=== PATIENT | female | born 1990 | race Caucasian/White ===

== ENCOUNTER 2019-01-27 12:43 | Emergency (ER) | payer BC, OTHER ==
[2019-01-27 13:43] VITALS: BP 115/76
--- NOTE | 2019-01-27 14:34 | UC ---
Neck Pain HPI - HPI Summary HPI Summary: patient was lifting heavy boxes over past week (moving) did a lot of lifting yesterday, this am woke with L sided neck and shoulder pain, worsened throughout day, took ibuprofen 800mg at 1030 with little relief. went to work, and someone lightly applied ice and massaged L neck and shoulder and pain worsened pain worse if lifting L arm or turning head. denies shoulder pain. denies fall or known injury, no recent illness - History of Current Complaint Chief Complaint: UCUpperExtremity Stated Complaint: NECK PAIN Time Seen by Provider: 01/27/19 13:59 Hx Obtained From: Patient Hx Last Menstrual Period: just finished ?: No Timing: Constant Onset/Duration: Gradual Onset Severity: Severe Pain Intensity: 8 Location: Discrete At: - L neck and shoulder Aggravating Factors: Movement Alleviating Factors: Position Associated Signs & Symptoms: Negative: Weakness, Headache, Paresthesia - Allergies/Home Medications Allergies/Adverse Reactions: Allergies Allergy/AdvReac Type Severity Reaction Status Date / Time No Known Allergies Allergy Verified 01/27/19 13:43 Home Medications: Home Medications Control 1 tab PO DAILY 01/27/19 [History Confirmed 01/27/19] Bupropion XL* [Wellbutrin XL *] 150 mg PO DAILY 01/27/19 [History Confirmed ] PMH/Surg Hx/FS Hx/Imm Hx Previously Healthy: Yes Psychological History: Depression - Surgical History Surgical History: Yes Surgery Procedure, Year, and Place: appendectomy. tubal ligation - Family History Known Family History: Positive: Non-Contributory - Social History Occupation: Employed Full-time Lives: With Family Alcohol Use: Rare Substance Use Type: None Smoking Status (MU): Never Smoked Tobacco Review of Systems All Other Systems Reviewed And Are Negative: Yes Constitutional: Positive: Negative. Negative: Fever, Chills Skin: Positive: Negative. Negative: Rash Respiratory: Positive: Negative Cardiovascular: Positive: Negative Musculoskeletal: Positive: Other: - L neck and shoulder pain Neurological: Positive: Negative. Negative: Headache, Weakness, Paresthesia, Numbness Psychological: Positive: Negative Is Patient Immunocompromised?: No Physical Exam Triage Information Reviewed: Yes Appearance: Well-Appearing, No Pain Distress, Well-Nourished Vital Signs: Initial Vital Signs Temp 98.8 F 01/27/19 13:38 Pulse 73 01/27/19 13:38 Resp 16 01/27/19 13:38 BP 115/76 01/27/19 13:38 Pulse Ox 100 01/27/19 13:38 Vital Signs Reviewed: Yes Neck: Positive: No Lymphadenopathy, Tenderness @ - left lateral neck, palp spasm left upper back (trapezius) Respiratory Exam: Normal Respiratory: Positive: Lungs clear Cardiovascular Exam: Normal Cardiovascular: Positive: RRR Musculoskeletal Exam: Normal Musculoskeletal: Positive: Other: - holds L shoulder still d/t neck pain Neurological Exam: Normal Neurological: Positive: Alert Psychological Exam: Normal Skin Exam: Normal Neck Pain Course/Dx - Differential Dx/Diagnosis Differential Dx/HQI/PQRI: Meningitis, Strain, Torticollis, Trauma Provider Diagnosis: Neck muscle strain Discharge - Sign-Out/Discharge Documenting (check all that apply): Patient Departure All imaging exams completed and their final reports reviewed: No Studies - Discharge Plan Condition: Stable Disposition: HOME Prescriptions: Cyclobenzaprine TAB* [Flexeril 10 MG TAB*] 10 mg PO TID PRN #15 tab PRN Reason: Spasms - Neck Ibuprofen TAB* [Motrin TAB* 800 MG] 800 mg PO Q6H #30 tab Patient Education Materials: Cervical Strain (DC) Forms: *Work Release Referrals: Aruna Crowe NP [Primary Care Provider] - Andres Riggs MD [Medical Doctor] - 3 Days (if no better) Additional Instructions: apply heat to area of ppain take ibuprofen as directed with food take cyclobenzaprine (muscle relaxer) as directed - this will make you drowsy return if symptoms worsen or new symptoms develop - Billing Disposition and Condition Condition: STABLE Disposition: Home - Attestation Statements Provider Attestation: I was available for consult. This patient was seen by the DIPAK. The patient was not presented to , seen by or examined by -Dali Campos MD
== END 2019-01-27 14:43 | disposition home or self-care (01) ==
LOC: UCEAST 12:43
DX: S16.1XXA Strain of muscle, fascia and tendon at neck level, initial encounter (principal); X50.9XXA Other and unspecified overexertion or strenuous movements or postures, initial encounter; Y93.89 Activity, other specified; Y92.019 Unspecified place in single-family (private) house as the place of occurrence of the external cause; Y99.8 Other external cause status; F32.9 Major depressive disorder, single episode, unspecified
CPT/HCPCS: 99212; G0463

== ENCOUNTER 2019-03-03 07:45 | Emergency (ER) | payer BC ==
[2019-03-03] MEDS ORDERED: Ondansetron INJ* 2 MG/ML VIAL IV ONE (08:03)
[2019-03-03] MEDS ORDERED: NS 0.9% 1000 ML** 1,000 ML IV ONE ×2 (08:03→09:40)
--- NOTE | 2019-03-03 08:24 | ED ---
GI/ HPI - HPI Summary HPI Summary: This patient is a 29 year old F presenting to [facility] with a chief complaint of diarrhea since "last couple of days". Patient states that she is having diarrhea as well as nausea. Patient states that she usually takes Imodium which helps with her diarreha. Patient states that her diarrhea is a "yellowish" in color. Patient states that she has taken 3 doses with no help. The patient rates the pain 2/10 in severity per ED Triage. Symptoms aggravated by nothing. Symptoms alleviated by nothing. Patient states that her last normal menstrual period was 02/24/19. Patient reports FHx of diabetes and breast cancer. Patient denies any recent travel, eating out or recent use of antibiotics. Patient states that she does not have hematochezia. Patient has a PSHx of appendectomy and tubal ligation. Patient denies substance abuse and tobacco use. Patient reports EtOH use as well as FHx of breast cancer and diabetes. - History of Current Complaint Chief Complaint: EDAbdPain Time Seen by Provider: 03/03/19 07:53 Stated Complaint: ABD PAIN PER PT Hx Obtained From: Patient Hx Last Menstrual Period: 02/24/19 Onset/Duration: Started Days Ago Timing: Intermittent Current Severity: Mild Pain Intensity: 2 Pain Characteristics: Cramping Associated Signs and Symptoms: Positive: Nausea, Diarrhea, Abdominal Pain. Negative: Vomiting, Blood w/Stool - Allergy/Home Medications Allergies/Adverse Reactions: Allergies Allergy/AdvReac Type Severity Reaction Status Date / Time No Known Allergies Allergy Verified 03/03/19 07:49 PMH/Surg Hx/FS Hx/Imm Hx Endocrine/Hematology History: Denies: Hx Diabetes, Hx Thyroid Disease Cardiovascular History: Denies: Hx Hypertension Respiratory History: Denies: Hx Asthma, Hx Chronic Obstructive Pulmonary Disease (COPD) GI History: Denies: Hx Ulcer - Surgical History Surgical History: Yes Surgery Procedure, Year, and Place: appendectomy. tubal ligation Infectious Disease History: No Infectious Disease History: Denies: Hx Hepatitis, Hx Human Immunodeficiency Virus (HIV), Traveled Outside the [place] in Last 30 Days - Family History Known Family History: Positive: Diabetes, Other - Breast cancer - Social History Alcohol Use: Rare Substance Use Type: Reports: None Hx Tobacco Use: No Smoking Status (MU): Never Smoked Tobacco Review of Systems Negative: Fever Positive: Abdominal Pain - cramping characterized as cramping , Diarrhea, Nausea. Negative: Vomiting All Other Systems Reviewed And Are Negative: Yes Physical Exam - Summary Physical Exam Summary: VITAL SIGNS: Reviewed. GENERAL: Patient is a well-developed and nourished (MALE OR FEMALE) who is lying comfortable in the stretcher. Patient is not in any acute respiratory distress. HEAD AND FACE: No signs of trauma. No ecchymosis, hematomas or skull depressions. No sinus tenderness. EYES: PERRLA, EOMI x 2, No injected conjunctiva, no nystagmus. EARS: Hearing grossly intact. Ear canals and tympanic membranes are within normal limits. MOUTH: Oropharynx within normal limits. NECK: Supple, trachea is midline, no adenopathy, no JVD, no carotid bruit, no c- spine tenderness, neck with full ROM. CHEST: Symmetric, no tenderness at palpation. LUNGS: Clear to auscultation bilaterally. No wheezing or crackles. CVS: Regular rate and rhythm, S1 and S2 present, no murmurs or gallops appreciated. ABDOMEN: Soft, non-tender. No signs of distention. No rebound, no guarding, and no masses palpated. Bowel sounds are increased. EXTREMITIES: FROM in all major joints, no edema, no cyanosis or clubbing. NEURO: Alert and oriented x 3. No acute neurological deficits. Speech is normal and follows commands. SKIN: Dry and warm. Triage Information Reviewed: Yes Vital Signs On Initial Exam: Initial Vitals Temp Pulse Resp BP Pulse Ox 98.6 F 100 16 121/80 99 03/03/19 07:47 03/03/19 07:47 03/03/19 07:47 03/03/19 07:47 03/03/19 07:47 Vital Signs Reviewed: Yes Diagnostics - Vital Signs Vital Signs Temp Pulse Resp BP Pulse Ox 03/03/19 07:47 98.6 F 100 16 121/80 99 - Laboratory Result Diagrams: 03/03/19 08:37 03/03/19 08:37 Lab Statement: Any lab studies that have been ordered have been reviewed, and results considered in the medical decision making process. GIGU Course/Dx - Course Assessment/Plan: 29-year-old female with nausea and diarrhea. IV fluids ordered. Zofran given for nausea. Blood work ordered and the stool cultures ordered. Blood work without any significant abnormality. Patient is unable to give any stool sample at this point. Patient was given an additional liter of IV fluids. The patient was unable to give any stool samples. The patient reports that she is feeling better. Therefore the patient will be discharged home with follow-up with PCP. Patient is hemodynamically stable alert and oriented 3. - Diagnoses Provider Diagnoses: Nausea, Diarrhea Discharge ED - Sign-Out/Discharge Documenting (check all that apply): Patient Departure - discharge Patient Received Moderate/Deep Sedation with Procedure: No - Discharge Plan Condition: Stable Disposition: HOME Prescriptions: Dicyclomine CAP* [Bentyl CAP*] 10 mg PO TID PRN #9 cap PRN Reason: Pain - Moderate Patient Education Materials: Acute Diarrhea (ED) Referrals: Aruna Crowe NP [Primary Care Provider] - 3 Days Additional Instructions: FOLLOW UP WITH YOUR PRIMARY CARE PROVIDER WITHIN 3 DAYS FOR NAUSEA AND DIARRHEA NOTED TODAY. RETURN TO THE ED FOR ANY WORSENING OR NEW SYMPTOMS. - Attestation Statements Document Initiated by Scribe: Yes Documenting Scribe: Naty Webster Provider For Whom Catalino is Documenting (Include Credential): Dr. Dc Singh MD Scribe Attestation: Naty Shay scribed for Dr. Dc Singh MD on 03/03/19 at 1201. Status of Scribe Document: Ready
[2019-03-03 08:44] LABS: ABS Eosinophils 0.1 10^3/ul (0-0.6); ABS Lymphocytes 1.7 10^3/ul (1.0-4.8); ABS Monocytes 0.5 10^3/ul (0-0.8); ABS Neutrophils 7.7 10^3/ul (1.5-7.7); Eosinophil % 0.6 %; Hematocrit 37 % (35-47); Hemoglobin 12.7 g/dL (12.0-16.0); Lymphocyte % 16.8 %; Mean Corpuscular HGB Conc 34 g/dL (31-36); Mean Corpuscular Hemoglobin 30 pg (27-31); Mean Corpuscular Volume 87 fL (80-97); Mean Platelet Volume 7.3 fL (7.4-10.4); Platelet Count 362 10^3/uL (150-450); Red Blood Count 4.25 10^6 /uL (3.70-4.87); Red Cell Distribution Width 12 % (10-15); White Blood Count 9.9 10^3/uL (3.5-10.8)
[2019-03-03 09:03] LABS: Albumin/Globulin Ratio 1.7 (1-3); BUN/Creatinine Ratio 16.3 (8-20); C Reactive Protein 3.93 mg/L (<8.01); Calcium 8.8 mg/dL (8.6-10.3); EGFR African American 93.7 (>60); EGFR Non-African American 77.5 (>60); Globulin 2.4 g/dL (2-4); Potassium 3.8 mmol/L (3.5-5.0); Total Bilirubin 0.4 mg/dL (0.2-1.0); Total Protein 6.4 g/dL (6.4-8.9)
[2019-03-03 12:09] VITALS: BP 103/71
== END 2019-03-03 12:09 | disposition home or self-care (01) ==
LOC: ED 07:45
DX: R19.7 Diarrhea, unspecified (principal); R11.0 Nausea; R10.9 Unspecified abdominal pain; Z90.89 Acquired absence of other organs
CPT/HCPCS: 36415; 80053; 82150; 83605; 83690; 85025; 86140; 99282; J2405

== ENCOUNTER 2019-03-04 16:24 | Emergency (ER) | payer BC ==
[2019-03-04 19:57] LABS: ABS Eosinophils 0.2 10^3/ul (0-0.6); ABS Lymphocytes 2.5 10^3/ul (1.0-4.8); ABS Monocytes 0.6 10^3/ul (0-0.8); ABS Neutrophils 8.2 10^3/ul (1.5-7.7); Eosinophil % 1.4 %; Hematocrit 38 % (35-47); Hemoglobin 12.7 g/dL (12.0-16.0); Lymphocyte % 21.9 %; Mean Corpuscular HGB Conc 33 g/dL (31-36); Mean Corpuscular Hemoglobin 29 pg (27-31); Mean Corpuscular Volume 87 fL (80-97); Mean Platelet Volume 7.3 fL (7.4-10.4); Platelet Count 386 10^3/uL (150-450); Red Blood Count 4.34 10^6 /uL (3.70-4.87); Red Cell Distribution Width 12 % (10-15); White Blood Count 11.5 10^3/uL (3.5-10.8)
[2019-03-04 20:14] LABS: ALT 68 U/L (7-52); AST 33 U/L (13-39); Albumin 4.3 g/dL (3.2-5.2); Albumin/Globulin Ratio 1.5 (1-3); Alkaline Phosphatase 92 U/L (34-104); Anion Gap 6 mmol/L (2-11); BUN/Creatinine Ratio 9.6 (8-20); Blood Urea Nitrogen 7 mg/dL (6-24); C Reactive Protein 6.59 mg/L (<8.01); CO2 Carbon Dioxide 26 mmol/L (22-32); Calcium 9.1 mg/dL (8.6-10.3); Chloride 105 mmol/L (101-111); EGFR African American 113.3 (>60); EGFR Non-African American 93.6 (>60); Globulin 2.9 g/dL (2-4); Glucose 98 mg/dL (70-100); Potassium 3.7 mmol/L (3.5-5.0); Sodium 137 mmol/L (135-145); Total Protein 7.2 g/dL (6.4-8.9)
[2019-03-04 20:20] LABS: HCG Pregnancy < 0.60 mIU/mL
[2019-03-04] MEDS ORDERED: Diphenoxylat/Atrop 2.5-0.025M* 1 TAB PO ONE (20:25)
[2019-03-04] MEDS ORDERED: Morphine 4 MG/ML VIAL (1 ml) 4 MG/ML VIAL IV ONE (20:25)
[2019-03-04] MEDS ORDERED: NS 0.9% 1000 ML** 2,000 ML IV ONE (20:25)
[2019-03-04] MEDS ORDERED: Ondansetron INJ* 2 MG/ML VIAL IV ONE (20:25)
[2019-03-04] MEDS ORDERED: Iohexol 300* (CONTRAST) 10 ML SDV IV ONE (21:12)
--- NOTE | 2019-03-04 21:21 | ED ---
Abdominal Pain/Female - HPI Summary HPI Summary: The patient is a 29 y/o F presenting to [facility] with a chief complaint of intermittent left-sided abdominal pain for the last four days with worsening symptoms today. She reports that she came to the ED yesterday for similar symptoms for which she was administered fluids but was unable to provide a stool sample. She is now experiencing watery diarrhea with mucous that is not alleviated by Amlodipine, which usually helps her with these symptoms. She notes that after passing a stool, which she has done 4-5 times in the last 4 hours, there is a pressure that develops as if she has solid stool to pass, although there is no success. The pain is described as a stabbing pain and is currently rated 8/10 in severity. She additionally c/o decreased appetite, nausea without vomiting, and low-grade fever of 99.9F. She denies any chills, blood in stool, decreased fluid intake, or rashes, although she has a bite noted on the posterior neck that has mostly resolved. These symptoms are atypical for her. No recent abx or travel. No one else at home is sick. LNMP: . PMHx: appendectomy, tubal ligation. FHx: DM, breast cancer. Nonsmoker, rare EtOH, no substance use. Medications reviewed. Allergies noted. - History of Current Complaint Chief Complaint: EDAbdPain Stated Complaint: ABD PAIN PER PT Time Seen by Provider: 03/04/19 20:18 Hx Obtained From: Patient Hx Last Menstrual Period: 02/24/19 ?: No Onset/Duration: Gradual Onset, Lasting Days - four, Still Present, Worse Since - today Timing: Days Severity Initially: Mild Severity Currently: Moderate Pain Intensity: 8 Pain Scale Used: 0-10 Numeric Location: Other - left-sided Radiates: No Character: Other: - stabbing Aggravating Factor(s): Nothing Alleviating Factor(s): Nothing - Amplodipine to no relief Associated Signs and Symptoms: Positive: Fever - low-grade 99.9F, Decreased Appetite, Nausea, Diarrhea - watery, mucous, Other: - Negative: chills, decreased fluid intake, rash. Negative: Blood in Stool, Vomiting Allergies/Adverse Reactions: Allergies Allergy/AdvReac Type Severity Reaction Status Date / Time No Known Allergies Allergy Verified 03/04/19 20:53 PMH/Surg Hx/FS Hx/Imm Hx Endocrine/Hematology History: Denies: Hx Diabetes, Hx Thyroid Disease Cardiovascular History: Denies: Hx Hypertension Respiratory History: Denies: Hx Asthma, Hx Chronic Obstructive Pulmonary Disease (COPD) GI History: Denies: Hx Ulcer History: Denies: Hx Renal Disease - Surgical History Surgical History: Yes Surgery Procedure, Year, and Place: appendectomy. tubal ligation Infectious Disease History: No Infectious Disease History: Denies: Hx Hepatitis, Hx Human Immunodeficiency Virus (HIV), Traveled Outside the [place] in Last 30 Days - Family History Known Family History: Positive: Diabetes, Other - Breast cancer - Social History Alcohol Use: Rare Hx Substance Use: No Substance Use Type: Reports: None Hx Tobacco Use: No Smoking Status (MU): Never Smoked Tobacco Review of Systems Positive: Fever - low-grade at 99.9F. Negative: Chills Positive: Abdominal Pain - left-sided, Diarrhea - watery, mucous, Nausea, Other - Positive: decreased appetite. Negative: hematochezia, decreased fluid intake.. Negative: Vomiting Negative: Rash All Other Systems Reviewed And Are Negative: Yes Physical Exam - Summary Physical Exam Summary: Appearance: Well-appearing, Well-nourished, lying in bed comfortably Skin: Warm, dry, no obvious rash Eyes: sclera anicteric, no conjunctival pallor ENT: mucous membranes moist, pharynx appears normal Neck: Supple, nontender Respiratory: Clear to auscultation, no signs of respiratory distress Cardiovascular: Normal S1, S2. No murmurs. Normal distal pulses in tibial and radial bilaterally. Abdomen: Soft, Mild left sided abdominal tenderness, no peritoneal signs, normal active bowel sounds present Musculoskeletal: Normal, Strength/ROM Intact Neurological: A&Ox3, awake and alert, mentation is normal, speech is fluent and appropriate Psychiatric: affect is normal, does not appear anxious or depressed Triage Information Reviewed: Yes Vital Signs On Initial Exam: Initial Vitals Temp Pulse Resp BP Pulse Ox 98.7 F 69 16 125/82 99 03/04/19 16:26 03/04/19 16:26 03/04/19 16:26 03/04/19 16:26 03/04/19 16:26 Vital Signs Reviewed: Yes Diagnostics - Vital Signs Vital Signs Temp Pulse Resp BP Pulse Ox 03/04/19 19:08 99.0 F 88 16 115/72 98 03/04/19 16:26 98.7 F 69 16 125/82 99 - Laboratory Lab Results: Lab Results 03/04/19 03/04/19 Range/Units 19:50 19:50 WBC 11.5 H (3.5-10.8) 10^3/uL RBC 4.34 (3.70-4.87) 10^6 /uL Hgb 12.7 (12.0-16.0) g/dL Hct 38 (35-47) % MCV 87 (80-97) fL MCH 29 (27-31) pg MCHC 33 (31-36) g/dL RDW 12 (10-15) % Plt Count 386 (150-450) 10^3/uL MPV 7.3 L (7.4-10.4) fL Neut % (Auto) 70.9 % Lymph % (Auto) 21.9 % [place] % (Auto) 5.4 % Eos % (Auto) 1.4 % Baso % (Auto) 0.4 % Absolute Neuts (auto) 8.2 H (1.5-7.7) 10^3/ul Absolute Lymphs (auto) 2.5 (1.0-4.8) 10^3/ul Absolute Monos (auto) 0.6 (0-0.8) 10^3/ul Absolute Eos (auto) 0.2 (0-0.6) 10^3/ul Absolute Basos (auto) 0.0 (0-0.2) 10^3/ul Absolute Nucleated RBC 0.0 10^3/ul Nucleated RBC % 0.0 Sodium 137 (135-145) mmol/L Potassium 3.7 (3.5-5.0) mmol/L Chloride 105 (101-111) mmol/L Carbon Dioxide 26 (22-32) mmol/L Anion Gap 6 (2-11) mmol/L BUN 7 (6-24) mg/dL Creatinine 0.73 (0.51-0.95) mg/dL Est GFR ( Amer) 113.3 (>60) Est GFR (Non-Af Amer) 93.6 (>60) BUN/Creatinine Ratio 9.6 (8-20) Glucose 98 (70-100) mg/dL Calcium 9.1 (8.6-10.3) mg/dL Total Bilirubin 0.40 (0.2-1.0) mg/dL AST 33 (13-39) U/L ALT 68 H (7-52) U/L Alkaline Phosphatase 92 (34-104) U/L C-Reactive Protein 6.59 (<8.01) mg/L Total Protein 7.2 (6.4-8.9) g/dL Albumin 4.3 (3.2-5.2) g/dL Globulin 2.9 (2-4) g/dL Albumin/Globulin Ratio 1.5 (1-3) Beta HCG, Quant < 0.60 mIU/mL Result Diagrams: 03/04/19 19:50 03/04/19 19:50 Lab Statement: Any lab studies that have been ordered have been reviewed, and results considered in the medical decision making process. - CT Abd/Pel CT CT Interpretation Completed By: Radiologist Summary of CT Findings: Impression: No acute findings. ED physician has reviewed this imaging report. Re-Evaluation - Re-Evaluation First Eval Re-Evaluation Time: 21:40 Change: Improved Comment: Pt's pain has improved as she is feeling better on her way to CT. Abdominal Pain Fem Course/Dx - Course Course Of Treatment: Pt is a 29 y/o F with cc of intermittent stabbing left- sided abd pain for the last four days accompanied by multiple episodes of watery diarrhea with mucous today without relief to Amlodipine accompanied by low-grade fever of 99.9F, nausea without vomiting, and decreased appetite, but without any chills, hematochezia, change in fluid intake, or rashes. Upon physical exam, the pt exhibits mild left-sided abdominal pain without peritoneal signs. Blood work reveals WBCs of 11.5, MPV of 7.3, abs neuts of 8.2 , and ALT of 68, but is otherwise unremarkable. In the ED course, the pt was administered fluids, Lomotil, Zofran, and Morphine. Stool occult is negative for C. diff. UA obtained and reveals 1+ ketones, 1+ blood, trace leukocyte esterase, presence of squamous epithelial cells, and 1+ bacteria. Abdominopelvic CT with contrast reveals no acute findings. Pt also administered Zithromax. We discussed all findings and plan for discharge with rx for Lomotil , Zofran, and Percocet. She understands and agrees with this plan. Dx of colitis. - Diagnoses Provider Diagnoses: Colitis Discharge ED - Sign-Out/Discharge Documenting (check all that apply): Patient Departure - Patient will be discharged home. Patient Received Moderate/Deep Sedation with Procedure: No - Discharge Plan Condition: Fair Disposition: HOME Prescriptions: Diphenoxylat/Atrop 2.5-0.025M* [Lomotil TAB*] 2 tab PO QID PRN #20 tab MDD 8 PRN Reason: Diarrhea Ondansetron ODT TAB* [Zofran 4 MG Odt TAB*] 8 mg PO Q6H PRN #12 tab.odt PRN Reason: Nausea Oxycodone TAB(NF) [Oxycodone HCl 10 MG] 10 mg PO Q6H PRN #1 tab MDD 4 PRN Reason: Pain - Severe Patient Education Materials: Colitis (ED) Forms: *Work Release Referrals: Aruna Crowe, [employer]INE[employer] [Primary Care Provider] - 2 Days (if not improving) Additional Instructions: The tests we did tonight fortunately did not show any evidence of a dangerous, invasive infection in the colon, but clearly it is quite inflamed. I have prescribed some medications to help with the symptoms, and you got a dose of antibiotics here which may help if the infection is bacterial. Rest at home and keep up with fluids - it may seem like they just go through you but rest assured much of it is absorbed. - Billing Disposition and Condition Condition: FAIR Disposition: Home - Attestation Statements Document Initiated by Catalino: Yes Documenting Scribe: Alena Clark Provider For Whom Catalino is Documenting (Include Credential): Dr. Carlos Zimmerman MD Scribe Attestation: IAlena scribed for Dr. Carlos Zimmerman MD on 03/08/19 at 1852. Scribe Documentation Reviewed: Yes Provider Attestation: The documentation as recorded by the Alena sky accurately reflects the service I personally performed and the decisions made by me, Dr. Carlos Zimmerman MD Status of Scribreji Document: Viewed
[2019-03-04 21:59] LABS: Urine Appearance Clear; Urine Bacteria 1+ (Absent); Urine Bilirubin Negative (Negative); Urine Blood 1+ (Negative); Urine Color Yellow; Urine Glucose Negative (Negative); Urine Ketones 1+ (Negative); Urine Nitrite Negative (Negative); Urine Protein Negative (Negative); Urine Red Blood Cell Trace(0-2/hpf) (Absent); Urine Specific Gravity 1.004 (1.010-1.030); Urine Squamous Epithelial Cell Present (Absent); Urine Urobilinogen Negative (Negative); Urine White Blood Cell Trace(0-5/hpf) (Absent)
[2019-03-04] MEDS ORDERED: Ketorolac INJ* 30 MG/ML 1 ML VIAL IV PUSH ONE (22:22)
[2019-03-04] MEDS ORDERED: Azithromycin TAB* 250 MG PO ONE (22:35)
[2019-03-04 23:11] VITALS: BP 117/64
== END 2019-03-04 23:18 | disposition home or self-care (01) ==
LOC: ED 16:24
DX: K52.9 Noninfective gastroenteritis and colitis, unspecified (principal); Z98.51 Tubal ligation status; Z79.899 Other long term (current) drug therapy
CPT/HCPCS: 36415; 74177; 80053; 81003; 81015; 84702; 85025; 86140; 87045; 87046; 87086; 87493; 87899; 96361; 96374; 96375; 99284; A9270-GY; J1885; J2270; J2405; Q9967

== ENCOUNTER 2019-07-01 07:29 | Emergency (ER) | payer BC ==
--- OUTSIDE RECORDS SUMMARY | 2019-07-01 07:39 | XMS REPORT | Continuity of Care Document ---
:1990 External Reference #:[id number] Author Name Anastasia Jeffrey MD (transmitted by agent of provider Ainsley Wasserman) Address [address] [place] [address] Care Team Providers Name Role Phone Aruna Crowe F.NGriffinP. 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 [phone] Problems Description No Information Available Social History Type Date Description Comments Sex Unknown ETOH Use Occasionally consumes 1- 2 glasses of alcohol wine per week Tobacco Use Start: Unknown End: Patient is a former socially as a Unknown smoker teenager Recreational Drug Use Denies Drug Use Smoking Status Reviewed: 05/30/19 Patient is a former socially as a smoker teenager Exercise Type/Frequency Does not exercise Allergies, Adverse Reactions, Alerts Active Allergies Reaction Severity Comments Date Codeine Nausea 03/21/2019 Medications Active Medications SIG Qnty Indications Ordering Date Provider Cyclobenzaprine HCL take 5mg at 90tabs M62.838 Navi Loyd, 04/16/2019 5mg night before Tablets bedtime Alprazolam 1/2-2 tablets Unknown 0.5mg Tablets by mouth every 6 hours as needed Claritin 1 by mouth Unknown 10mg Tablets every day Topiramate 1 tab by mouth Unknown 50mg Tablets once a day Multivitamin Adult 1 by mouth Unknown Tablets every day Bupropion Hydrochloride Aruna Crowe, ER (XL) F.N.P. 300mg Tablets ER 24HR History Medications Nitrofurantoin Monohyd Take one cap by 10caps N39.0 Navi Loyd, 2018 - Macro mouth twice MD Unknown 100mg Capsules daily for five days Metformin HCL ER 1 tablet in the 30tabs E28.2 Michael Landaverde MD 03/21/2019 - 500mg evening Unknown Tablets ER 24HR Immunizations Description No Information Available Vital Signs Date Vital Result Comment 05/30/2019 3:05pm Heart Rate 72 /min BP Systolic 116 mmHg BP Diastolic 68 mmHg Respiratory Rate 16 /min Body Temperature 98.4 F 04/16/2019 8:55am Height 65 inches 5'5" Weight 156.00 lb Heart Rate 85 /min BP Systolic 111 mmHg BP Diastolic 78 mmHg Body Temperature 96.9 F Pain Level 5 O2 % BldC Oximetry 99 % BMI (Body Mass Index) 26.0 kg/m2 Results Test Acquired Date Facility Test Result H/L Range Note CBC Auto 04/16/2019 [facility] White Blood 6.1 10^3/uL Normal 3.5-10.[address] [place] [address] [phone] Red Blood Count 4.55 10^6/uL Normal 3.70-4.87 Hemoglobin 13.6 g/dL Normal 12.0-16.0 Hematocrit 40 % Normal 35-47 Mean Corpuscular Volume 88 fL Normal 80-97 Mean Corpuscular Hemoglobin 30 pg Normal 27-31 Mean Corpuscular HGB Conc 34 g/dL Normal 31-36 Red Cell Distribution Width 13 % Normal 10-15 Platelet Count 334 10^3/uL Normal 150-450 Mean Platelet Volume 8.2 fL Normal 7.4-10.4 Abs Neutrophils 3.1 10^3/uL Normal 1.5-7.7 Abs Lymphocytes 2.5 10^3/uL Normal 1.0-4.8 Abs Monocytes 0.4 10^3/uL Normal 0-0.8 Abs Eosinophils 0.1 10^3/uL Normal 0-0.6 Abs Basophils 0.0 10^3/uL Normal 0-0.2 Abs Nucleated RBC 0.0 10^3/uL Granulocyte % 51.7 % Lymphocyte % 40.6 % Monocyte % 6.0 % Eosinophil % 1.5 % Basophil % 0.2 % Nucleated Red Blood Cells % 0.2 Urinalysis Profile 04/16/2019 [facility] Urine Color Straw [address] [place] [address] [phone] Urine Appearance Cloudy Urine Specific Jefferson 1.008 Low 1.010-1.030 Urine pH 6.0 Normal 5-9 Urine Urobilinogen Negative Negative Urine Ketones Negative Negative Urine Protein Negative Negative Urine Leukocytes 1+ Abnormal Negative Urine Blood Negative Negative Urine Nitrite Negative Negative Urine Bilirubin Negative Negative Urine Glucose Negative Negative Urine White Blood Cell Trace(0-5/hpf) Absent Urine Red Blood Cell Absent Absent Urine Bacteria 1+ Abnormal Absent Urine Squamous Epithelial Cell Present Abnormal Absent Laboratory test 04/16/2019 [facility] Ferritin 40.8 ng/mL Normal 11-[address] [place] [address] [phone] Iron & Iron 04/16/2019 [facility] Iron 141 g/dL Normal 50- [address] [place] [address] [phone] Unsaturated Iron Binding < 376 g/dL Total Iron Binding Capacity 391 g/dL Normal 250-450 Transferrin 279 mg/dL Normal 203-362 % Iron Saturation 36 % Normal 15-55 Laboratory test 04/16/2019 [facility] Creatine 84 U/L Normal 10-223 finding Kinase(CK) [place] [address] [phone] GGTP 64 U/L Normal 9-64.0 Liver Function 04/16/2019 [facility] Total Protein 6.9 g/dL Normal 6.4-8.[address] [place] [address] [phone] Albumin 4.6 g/dL Normal 3.2-5.2 Globulin 2.3 g/dL Normal 2-4 Albumin/Globulin Ratio 2.0 Normal 1-3 Total Bilirubin 0.60 mg/dL Normal 0.2-1.0 Direct Bilirubin 0.10 mg/dL Normal 0.03-0.18 Indirect Bilirubin 0.5 mg/dL Normal 0.3-1.0 Alkaline Phosphatase 68 U/L Normal 34-104 Alt 39 U/L Normal 7-52 Ast 22 U/L Normal 13-39 Laboratory test 04/16/2019 [facility] Smooth Muscle Negative Negative 1 [place] [address] [phone] Complement C3 116 mg/dL 75 - 175 2 Complement C4 17 mg/dL 14 - 40 3 Direct Milena NEGATIVE Beta 2 Glycoprotein 04/16/2019 [facility] Beta 2 <9.4 U/mL 4 I Abs 101 [place] [address] [phone] Beta 2 Glycoprotein IgM <9.4 U/mL 5 Cardiolipin 04/16/2019 [facility] Phospholipid Ab < 9.4 MPL 6 Igg/Igm [address] IgM, [place] [address] [phone] Phospholipid Ab IgG < 9.4 GPL 7 Lupus Anticoagulant 04/16/2019 [facility] Prothrombin 11.9 sec [address] Time([place]ac) [place] [address] [phone] Lac Inr 1.1 Lac Apt[address] 31 sec 26 - 36 Lac DRVVT Screen Ratio 0.7 ratio 0.0 - 1.1 Lupus Anticoagulant Interpreta See Comment 9 Urine Culture And 04/16/2019 [facility] Urine Culture SEE RESULT [address] [place] [address] [phone] 1 ADDITIONAL INFORMATION This test was developed and its performance characteristics determined by [facility] in a manner consistent with CLIA requirements. This test has not been cleared or approved by the U.S. Food and Drug Administration. Test Performed by: [facility] [place] [address] Automobile Service Station Manager: Nathan Keith M.D. Ph.D.; CLIA# [id number] 2 Test Performed by: [place] [address] Automobile Service Station Manager: Nathan Keith M.D. Ph.D.; CLIA# [id number] 3 Test Performed by: [facility] [place] [address] Automobile Service Station Manager: Nathan Keith M.D. Ph.D.; CLIA# [id number] 4 REFERENCE VALUE <15.0 (Negative) 5 REFERENCE VALUE <15.0 (Negative) Test Performed by: [facility] [place] [address] Automobile Service Station Manager: Nathan Keith M.D. Ph.D.; CLIA# [id number] 6 REFERENCE VALUE <15.0 (Negative) 7 REFERENCE VALUE <15.0 (Negative) Test Performed by: [facility] [place] [address] Automobile Service Station Manager: Nathan Keith M.D. Ph.D.; CLIA# [id number] 8 REFERENCE VALUE 10.3 - 12.8 9 No evidence of a lupus-like anticoagulant based on results of Prothrombin Time (PT), Activated Partial Thromboplastin Time (APTT), and Dilute Russells Viper Venom Time (DRVVT). Interpretation not reviewed by physician. Test Performed by: [facility] - [address] [address] Automobile Service Station Manager: Nathan Keith M.D. Ph.D.; CLIA# [id number] 10 SEE RESULT BELOW Name: AANBELLA DE LA ROSA : [address]: Navi Loyd MD Acct: [id number] Unit: [id number] AGE: 29 Location: LAB Re04/16/19 SEX: F Status: REG REF SPEC: [id number] ARTIE: 04/16/[address] [facility] [address]: Navi Loyd MD REQ: [id number] RECD: 04/16/19 STATUS:COMP _ SOURCE: URINE SPDESC: ORDERED: Urine Culture Procedure Result Reported Site Urine Culture Final 04/17/19- 1236 ML No growth of clinically significant organisms * ML - Main Lab . END OF REPORT DEPARTMENT OF PATHOLOGY, [address] [place] [address] Blair Brown M.D. Director [facility] # [id number] Procedures Date Code Description Status 04/22/2019 [id number] Mammogram Completed Medical Devices Description No Information Available Encounters Type Date Location Provider Dx Diagnosis Office Visit 04/16/2019 Rheumatology Navi Loyd, R76.0 Raised antibody 9:00a [facility] - MD titer Ccmob R74.0 Nonspec elev of levels of transamns & lactic acid dehydrgnse M79.7 Fibromyalgia M62.838 Other muscle spasm Office Visit 03/21/2019 1:00p [place] [facility] and Michael Landaverde, E28.2 Polycystic [facility] MD ovarian syndrome E04.1 Nontoxic single thyroid nodule Assessments Date Code Description Provider 05/30/2019 N64.59 Other signs and symptoms in breast Anastasia Jeffrey MD 05/30/2019 Z80.3 Family history of malignant neoplasm of breast Anastasia Jeffrey MD 04/16/2019 R76.0 Raised antinuclear antibody Navi Loyd MD 04/16/2019 R74.0 Alt (SGPT) level raised Navi Loyd MD 04/16/2019 M79.7 Fibromyalgia Navi Loyd MD 04/16/2019 M62.838 Muscle spasms of head And/Or neck Navi Loyd MD 03/21/2019 E28.2 Polycystic ovarian syndrome Michael Landaverde MD 03/21/2019 E04.1 Nontoxic single thyroid nodule Michael Landaverde MD Plan of Treatment Future Appointment(s):06/18/2019 3:30 pm - Navi Loyd MD at [facility]05/30/2019 - Anastasia Jeffrey MDN64.59 Other signs and symptoms in ibkylhL35.3 Family history of malignant neoplasm of breastNew Xrays: US Breast Biopsy Bilateral, Ordered: 05/30/19US Breast Limited Bilateral, Ordered: 05/30/19Referral:Nicolas Billy M.D., Hematology & Oncology Functional Status Description No Information Available Mental Status Description No Information Available Referrals Refer to Reason for Referral Status Appt Date Nicolas Billy M.D. Pt.'s mother had breast cancer at age 32, Created at age 37. Maternal aunt had DCIS in her 40s. Pt. reports testing BRCA neg, no details available. She would appreciate advice re prophylactic mastectomies [address] [place], [place] [id number] [phone]
--- OUTSIDE RECORDS SUMMARY | 2019-07-01 07:39 | XMS REPORT | Continuity of Care Document ---
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 Problems Description No Information Available Social History [...] Medications SIG Qnty Indications Ordering Date Provider Omeprazole 1 by mouth 90caps K21.9 Navi Loyd, 06/28/[address] every day Cyclobenzaprine HCL take 5mg at 90tabs M62.838 [...] Navi Loyd, 2018 - Macro mouth twice Unknown 100mg Capsules daily for five days Metformin HCL ER 1 tablet in the 30tabs E28.2 Michael Landaverde MD 03/21/2019 - 500mg evening Unknown Tablets ER 24HR Immunizations Description No Information Available Vital Signs Date Vital Result Comment 06/28/2019 8:35am Height 65 inches 5'5" Heart Rate 86 /min BP Systolic Sitting 97 mmHg BP Diastolic Sitting 73 mmHg Body Temperature 97.4 F O2 % BldC Oximetry 99 % 05/30/2019 3:05pm Heart Rate 72 /min BP Systolic 116 mmHg BP Diastolic 68 mmHg Respiratory Rate 16 /min Body Temperature 98.4 F Results Test Acquired Date Facility Test Result H/L Range Note Surgical 06/24/2019 [facility] Surgical SEE RESULT [address] [place] [address] [phone] PDFReport SEE IMAGE CBC Auto 04/16/2019 [facility] White Blood 6.1 10^3/uL Normal 3.5-10.[address] [place] [address] [phone] Red Blood Count 4.55 10^6/uL Normal 3.70-4.87 [...] Blood Cells % 0.2 Urinalysis Profile 04/16/2019 [facility] Urine Color Straw [address] [place] [address] [phone] Urine Appearance Cloudy Urine Specific Sheldon 1.008 Low 1.010-1.030 Urine pH 6.0 Normal [...] Cell Present Abnormal Absent Laboratory test 04/16/2019 [facility] Ferritin 40.8 ng/mL Normal 11-307 finding [address] [place] [address] [phone] Iron & Iron 04/16/2019 [facility] Iron 141 g/dL Normal 50- 212 Binding Capacity [address] [place] [address] [phone] Unsaturated Iron Binding < 376 g/dL Total Iron Binding Capacity 391 g/dL Normal 250-450 Transferrin 279 mg/dL Normal 203-362 % Iron Saturation 36 % Normal 15-55 Laboratory test 04/16/2019 [facility] Creatine 84 U/L Normal 10-223 finding [facility] Kinase(CK) [place] [address] [phone] GGTP 64 U/L Normal 9-64.0 Liver Function 04/16/2019 [facility] Total Protein 6.9 g/dL Normal 6.4-8.9 Panel [facility] [place] [address] [phone] Albumin 4.6 g/dL Normal 3.2-5.2 Globulin 2.3 g/dL Normal 2-4 Albumin/Globulin Ratio 2.0 Normal 1-3 Total Bilirubin 0.60 mg/dL Normal 0.2-1.0 Direct Bilirubin 0.10 mg/dL Normal 0.03-0.18 Indirect Bilirubin 0.5 mg/dL Normal 0.3-1.0 Alkaline Phosphatase 68 U/L Normal 34-104 Alt 39 U/L Normal 7-52 Ast 22 U/L Normal 13-39 Laboratory test 04/16/2019 [facility] Smooth Muscle Negative Negative 2 finding [facility] [place] [address] [phone] Complement C3 116 mg/dL 75 - 175 3 Complement C4 17 mg/dL 14 - 40 4 Direct Milena NEGATIVE Beta 2 Glycoprotein 04/16/2019 [facility] Beta 2 <9.4 U/mL 5 I Abs [address] [place] [address] [phone] Beta 2 Glycoprotein IgM <9.4 U/mL 6 Cardiolipin 04/16/2019 [facility] Phospholipid Ab < 9.4 MPL 7 Igg/Igm [address] IgM, [place] [address] [phone] Phospholipid Ab IgG < 9.4 GPL 8 Lupus Anticoagulant 04/16/2019 [facility] Prothrombin 11.9 sec [address] Time([place]) [place] [address] [phone] Lac Inr 1.1 Lac Aptt 31 sec 26 - 36 Lac DRVVT Screen Ratio 0.7 ratio 0.0 - 1.1 Lupus Anticoagulant Interpreta See Comment 10 Urine Culture And 04/16/2019 [facility] Urine Culture SEE RESULT [address] [place] [address] [phone] 1 SEE RESULT BELOW Name: ANABELLA DE LA ROSA : [address]: Anastasia Jeffrey MD Acct: [id number] Unit: [id number] AGE: 29 Location: [facility] Re06/24/19 SEX: F Status: REG REF SPEC: [id number] ARTIE: 06/24/19- SUBM DR: Navi Durán MD REQ: [id number] RECD: 06/24/19-226 STATUS: OBDULIA JAVED DR: Anastasia Crowe SERVICE STATION HELPER _ ORDERED: LEVEL 4 FINAL DIAGNOSIS Breast, right, core biopsy: -- Benign breast tissue with nonproliferative fibrocystic change including extensive nodular stromal fibrosis. -- No evidence of neoplasia identified. CLINICAL HISTORY Small 5 x 3 mm nodule; rule out carcinoma PRE-OPERATIVE DIAGNOSIS Right breast mass 2:00 3 cm from nipple 0.5 x 0.3 x 0.5 cm GROSS DESCRIPTION The specimen is received in formalin labeled, Right Breast, and consists of a 1.2 x 0.5 by up to 0.2 cm aggregate of miller-white irregular to cylindrical fibrofatty soft tissue fragments admixed with scant red-brown blood clot. Entirely submitted, one cassette. Signed by and Reported on: Blair Brown MD 1102 END OF REPORT DEPARTMENT OF PATHOLOGY, [address] [place] [address] Blair Brown M.D. Director [place] # [id number] 2 ADDITIONAL INFORMATION This test was developed and its performance characteristics determined by [facility] in a manner consistent with CLIA requirements. This test has not been cleared or approved by the U.S. Food and Drug Administration. Test Performed by: [facility] [address] [place] [address] Golf Club Facer: Nathan Keith M.D. Ph.D.; CLIA# [id number] 3 Test Performed by: [facility] [place] [address] [employer] Facer: Nathan Keith M.D. Ph.D.; CLIA# [id number] 4 Test Performed by: [facility] [place] [address] [employer] Facer: Nathan Keith M.D. Ph.D.; CLIA# [id number] 5 REFERENCE VALUE <15.0 (Negative) 6 REFERENCE VALUE <15.0 (Negative) Test Performed by: [facility] [place] [address] [employer] Facer: Nathan Keith M.D. Ph.D.; CLIA# [id number] 7 REFERENCE VALUE <15.0 (Negative) 8 REFERENCE VALUE <15.0 (Negative) Test Performed by: [facility] [place] [address] [employer] Facer: Nathan Keith M.D. Ph.D.; CLIA# [id number] 9 REFERENCE VALUE 10.3 - 12.8 10 No evidence of a lupus-like anticoagulant based on results of Prothrombin Time (PT), Activated Partial Thromboplastin Time (APTT), and Dilute Russells Viper Venom Time (DRVVT). Interpretation not reviewed by physician. Test Performed by: [facility] [place] [address] [employer] Club Facer: Nathan Keith M.D. Ph.D.; CLIA# [id number] 11 SEE RESULT BELOW Name: ANABELLA DE LA ROSA : [address]: aNvi Loyd MD Acct: [id number] Unit: [id number] AGE: 29 Location: LAB Re04/16/19 SEX: F Status: REG REF SPEC: [id number] ARTIE: 04/16/[address]: Navi Loyd MD REQ: [id number] RECD: 04/16/19 STATUS:COMP _ SOURCE: URINE SPDESC: ORDERED: Urine Culture Procedure Result Reported Site Urine Culture Final 04/17/19- 1236 ML No growth of clinically significant organisms * - Main Lab . END OF REPORT DEPARTMENT OF PATHOLOGY, [address] [place] [address] Blair Brown M.D. Director [facility] # [id number] Procedures Date Code Description Status 04/22/2019 [id number] Mammogram Completed Medical Devices Description No Information Available Encounters Type Date Location Provider Dx Diagnosis Office Visit [facility]2019 [facility] Anastasia Jeffrey, N64.59 Other signs and 2:45p [facility] symptoms in breast Z80.3 Family history of malignant neoplasm of breast Office Visit 04/16/2019 9:00a Rheumatology Navi R76.0 Raised antibody [facility] - MD Rach titer Ccmob R74.0 Nonspec elev of levels of transamns & lactic acid dehydrgnse M79.7 Fibromyalgia M62.838 Other muscle spasm Office Visit 03/21/2019 1:00p [place] [facility] and Rodriguez Coch, E28.2 Polycystic [facility]ocr[facility] ovarian syndrome E04.1 Nontoxic single thyroid nodule Assessments Date Code Description Provider 06/28/2019 M62.838 Other muscle spasm Navi Loyd MD 06/28/2019 M25.552 Pain in left hip Navi Loyd MD 06/28/2019 M25.561 Pain in right knee Navi Loyd MD 06/28/2019 M79.7 Fibromyalgia Navi Loyd MD 06/28/2019 K21.9 Gastro-esophageal reflux disease without Navi Loyd MD esophagitis 05/30/2019 N64.59 Other signs and symptoms in [...] Michael Landaverde MD Plan of Treatment Future Appointment(s):09/27/2019 8:00 am - Navi Loyd MD at [facility]06/28/2019 - Navi Loyd, MDM62.838 Other muscle spasmNew Therapy:Physical TherapyFollow up:3 nfhffgO76.552 Pain in left hipM25.561 Pain in right kneeComments:Recommend Aleve 220mg, up to two tabs twice ssurxB78.7 HnphhghiuboyW44.9 Gastro-esophageal reflux disease without esophagitisNew Medication:Omeprazole 40 mg - 1 by mouth every day Functional Status Description No Information Available Mental Status Description No Information Available Referrals Refer to Reason for Referral Status Appt Date Nicolas Billy M.D. Pt.'s mother had breast cancer at age 32, Closed at age 37. Maternal aunt had DCIS in her 40s. Pt. reports testing BRCA neg, no details available. She would appreciate advice re prophylactic mastectomies [address] [place] [address] [phone]
[2019-07-01] MEDS ORDERED: Ondansetron ODT TAB* 4 MG SL ONE ×2 (07:41→11:56)
--- NOTE | 2019-07-01 07:42 | ED ---
GI/ HPI - HPI Summary HPI Summary: This patient is a 29 year old F with a history of colitis presenting to ED with a chief complaint of nausea since 0600 this morning after waking up. Patient also reports dizziness. She denies any abdominal pain, vomiting, headaches, body aches, fever, chest pain, shortness of breath, and burning while urination. Patient did not eat dinner yesterday since she didnt feel hungry. Her last meal was around 1400 yesterday. She felt mostly fine last night. She did not drink her coffee this morning. She reports being around other people who have been sick recently. The patient rates the pain 0/10 in severity. Symptoms aggravated by nothing. Symptoms alleviated by nothing. PSHx of tubal ligation. - History of Current Complaint Chief Complaint: EDNauseaVomitDiarrh Time Seen by Provider: 07/01/19 07:33 Stated Complaint: nausea, dizzy Hx Obtained From: Patient Hx Last Menstrual Period: 02/24/19 Onset/Duration: Started Hours Ago - 0600 this morning, Still Present Timing: Constant, Lasting Hours - Since 0600 this morning Severity: Mild Current Severity: Mild Pain Intensity: 0 Associated Signs and Symptoms: Positive: Dizziness, Nausea. Negative: Vomiting , Fever, Abdominal Pain Aggravating Factor(s): Nothing Alleviating Factor(s): Nothing - Allergy/Home Medications Allergies/Adverse Reactions: Allergies Allergy/AdvReac Type Severity Reaction Status Date / Time No Known Allergies Allergy Verified 07/01/19 07:32 PMH/Surg Hx/FS Hx/Imm Hx Endocrine/Hematology History: Denies: Hx Diabetes, Hx Thyroid Disease Cardiovascular History: Denies: Hx Hypertension, Hx Pacemaker/ICD Respiratory History: Denies: Hx Asthma, Hx Chronic Obstructive Pulmonary Disease (COPD) GI History: Reports: Other GI Disorders - Colitis Denies: Hx Ulcer History: Denies: Hx Dialysis, Hx Renal Disease Sensory History: Denies: Hx Hearing Aid Psychiatric History: Reports: Hx Panic Disorder - Cancer History Hx Chemotherapy: No Hx Radiation Therapy: No - Surgical History Surgery Procedure, Year, and Place: 06/24/2019 US GUIDED Rt BREAST BIOPSY. appendectomy 2012. tubal ligation 2014 Infectious Disease History: No Infectious Disease History: Denies: Hx Hepatitis, Hx Human Immunodeficiency Virus (HIV), Traveled Outside the [place] in Last 30 Days - Family History Known Family History: Positive: Diabetes, Other - Breast cancer - Social History Alcohol Use: Occasionally Hx Substance Use: No Substance Use Type: Reports: None Hx Tobacco Use: No Smoking Status (MU): Never Smoked Tobacco Review of Systems Negative: Fever Negative: Chest Pain Negative: Shortness Of Breath Positive: Nausea. Negative: Abdominal Pain, Vomiting Negative: burning Musculoskeletal: Negative - Body aches Neurological: Other - Dizziness All Other Systems Reviewed And Are Negative: Yes Physical Exam - Summary Physical Exam Summary: Constitutional: Well-developed, Well-nourished, Alert. (-) Distressed Skin: Warm, Dry HENT: Normocephalic; Atraumatic Eyes: Conjunctiva normal Neck: Musculoskeletal ROM normal neck. (-) JVD, (-) Stridor, (-) Tracheal deviation Cardio: Rhythm regular, rate normal, Heart sounds normal; Intact distal pulses; The pedal pulses are 2+ and symmetric. Radial pulses are 2+ and symmetric. (-) Murmur Pulmonary/Chest wall: Effort normal. (-) Respiratory distress, (-) Wheezes, (-) Rales Abd: Soft, (-) tenderness, (-) Distension, (-) Guarding, (-) Rebound Musculoskeletal: (-) Edema Lymph: (-) Cervical adenopathy Neuro: Alert, Oriented x3 Psych: Mood and affect Normal Triage Information Reviewed: Yes Vital Signs On Initial Exam: Initial Vitals Temp Pulse Resp BP Pulse Ox 97.7 F 114 19 120/86 100 07/01/19 07:29 07/01/19 07:29 07/01/19 07:29 07/01/19 07:29 07/01/19 07:29 Vital Signs Reviewed: Yes Procedures - Sedation Patient Received Moderate/Deep Sedation with Procedure: No Diagnostics - Vital Signs Vital Signs Temp Pulse Resp BP Pulse Ox 07/01/19 07:29 97.7 F 114 19 120/86 100 - Laboratory Lab Statement: Any lab studies that have been ordered have been reviewed, and results considered in the medical decision making process. Re-Evaluation - Re-Evaluation First Eval Re-Evaluation Time: 08:31 Change: Improved Comment: Patient was given Zofran, ice water, and saltines. She says she feels less nauseous, but her stomach still feels off. She denies wanting a GI cocktail and thinks she might just be dehydrated, so I will give her more time and then reassess again. Second Eval Re-Evaluation Time: 10:01 Change: Worse Comment: Patient reports increased dizziness and migraine headache. Third Eval Re-Evaluation Time: 11:55 Change: Improved Comment: Patient reports feeling better. Discussed results with patient. Patient will be discharged home with dx of migraine. Patient understands and agrees with this plan. GIGU Course/Dx - Course Course Of Treatment: This patient is a 29 year old F with a history of colitis presenting to ED with a chief complaint of nausea since 0600 this morning after waking up. In the ED course, patient received Zofran and fluids. Patient began to develop a migraine headache while in the ER so I gave Benadryl, Toradol, and Reglan. After treatment, patient reports feeling better. Discussed results with patient. Patient will be discharged home with dx of migraine. Patient understands and agrees with this plan. - Diagnoses Provider Diagnoses: Migraine Discharge ED - Sign-Out/Discharge Documenting (check all that apply): Patient Departure - Discharge - Discharge Plan Condition: Stable Disposition: HOME Prescriptions: Ondansetron HCl [Zofran] 4 mg PO Q6HR PRN #15 tablet PRN Reason: Nausea/Vomiting Patient Education Materials: Migraine Headache (ED) Referrals: Aruna Crowe NP [Primary Care Provider] - 3 Days Additional Instructions: Please follow-up with your primary care physician in 2-3 days. PLEASE RETURN TO THE ER FOR WORSENING OR CHANGING SYMPTOMS. It was a pleasure taking care of you today. - Billing Disposition and Condition Condition: STABLE Disposition: Home - Attestation Statements Document Initiated by Catalino: Yes Documenting Scribe: Je Samson Provider For Whom Catalino is Documenting (Include Credential): Luis Felipe Talavera DO Scribe Attestation: IJe scribed for Luis Felipe Talavera DO on 07/01/19 at 1336. Scribe Documentation Reviewed: Yes Provider Attestation: The documentation as recorded by the Je sky accurately reflects the service I personally performed and the decisions made by me, Luis Felipe Talavera DO Status of Scribe Document: Viewed
[2019-07-01] MEDS ORDERED: diPHENhydraMINE IV* 50 MG/ML 1 ml VIAL (BENADRYL) IV ONE (10:04)
[2019-07-01] MEDS ORDERED: Metoclopramide IV* 5 MG/ML 2 ML VIAL IV ONE (10:04)
[2019-07-01] MEDS ORDERED: NS 0.9% 1000 ML** 1,000 ML IV ONE (10:04)
[2019-07-01] MEDS ORDERED: Ketorolac INJ* 30 MG/ML 1 ML VIAL IV PUSH ONE (10:04)
[2019-07-01 12:30] VITALS: BP 101/71
== END 2019-07-01 12:27 | disposition home or self-care (01) ==
LOC: ED 07:29
DX: G43.909 Migraine, unspecified, not intractable, without status migrainosus (principal); R42 Dizziness and giddiness; R11.0 Nausea; F41.0 Panic disorder [episodic paroxysmal anxiety]
CPT/HCPCS: 96361; 96374; 96375; 99282; A9270-GY; J1200; J1885; J2765